=== PATIENT | male | born 1960 | race Caucasian/White ===

== ENCOUNTER 2021-10-27 04:06 | Emergency (ER) | payer MEDICARE, MEDICAID ==
[~2021-10-27] VITALS: Ht 185.4 cm; Wt 113.0 kg
[2021-10-27 04:14] VITALS: BP 135/70
[2021-10-27] MEDS ORDERED: GOOD SENSE ASPI81 M1 PO (04:39)
[2021-10-27] MEDS ORDERED: ZINC50 M5 PO (04:40)
[2021-10-27] MEDS ORDERED: D3-5000125 MCG PO (04:40)
[2021-10-27] MEDS ORDERED: VITAMIN C PUR1000 MG PO (04:40)
[2021-10-27] MEDS ORDERED: ELIQUIS5 MG PO (04:42)
[2021-10-27] MEDS ORDERED: LEVOTHYROXINE0.2 MG PO (04:43)
[2021-10-27] MEDS ORDERED: PRILOSEC 20MG20 MG PO (04:44)
[2021-10-27] MEDS ORDERED: LIPITOR 40MG TA40 MG PO (04:44)
[2021-10-27] MEDS ORDERED: ESKALITH C450 MG/TAB PO (04:46)
[2021-10-27] MEDS ORDERED: CARBIDOPA PO (04:46)
[2021-10-27] MEDS ORDERED: [UNRECOGNIZED DRUG - OTHER] PO (04:46)
[2021-10-27] MEDS ORDERED: COZAAR100 MG PO (04:47)
[2021-10-27] MEDS ORDERED: RASAGILINE MESYL1 MG PO (04:47)
[2021-10-27] MEDS ORDERED: LAMICTAL150 MG PO (04:48)
[2021-10-27] MEDS ORDERED: NORVASC 10MG10 MG PO (04:49)
[2021-10-27 05:45] LABS: BASO # 0.04 K/mm3 (0.02-0.10); EOS # 0.37 K/mm3 (0.04-0.40); EOS % 4.5 % (0.0-4.0); HEMATOCRIT 34.8 % (42.0-52.0); HEMOGLOBIN 11.1 g/dL (13.5-18.0); LYMPH# 1.43 K/mm3 (1.50-4.00); MEAN CELL VOLUME 92 fl (78-100); MEAN CORPUSCULAR HEMOGLOBIN 29 pg (27-31); MEAN CORPUSCULAR HGB CONC 32 g/dL (33-37); MEAN PLATELET VOLUME 9.6 fl (7.4-10.4); MONO # 0.87 K/mm3 (0.20-0.80); NEU # 5.51 K/mm3 (1.40-6.50); PLATELET COUNT 241 K/mm3 (130-400); RED BLOOD COUNT 3.78 M/mm3 (4.20-5.60); WHITE BLOOD COUNT 8.2 K/mm3 (4.8-10.8)
[2021-10-27 06:01] LABS: POTASSIUM 3.5 mmol/L (3.5-5.1)
[2021-10-27 06:02] LABS: CALCIUM 9.1 mg/dL (8.3-10.5)
[2021-10-27 06:22] LABS: D-DIMER 0.48 mg/L FEU (0.15-0.50)
== END 2021-10-27 07:55 | disposition home or self-care (01) ==
LOC: ED 04:06
PROVIDERS: Family Medicine
DX: D64.9 Anemia, unspecified (principal); R60.0 Localized edema; Z79.01 Long term (current) use of anticoagulants; Z86.718 Personal history of other venous thrombosis and embolism; Z86.711 Personal history of pulmonary embolism; Z89.512 Acquired absence of left leg below knee